=== PATIENT | male | born 1960 | race Caucasian/White ===

== ENCOUNTER 2020-09-15 10:11 | Emergency (ER) | payer OTHER, SELFPAY ==
[2020-09-15 10:21] VITALS: BP 167/88; PULSE 70; RESP 16; TEMP 36.5; O2SAT 98
--- NOTE | 2020-09-15 10:36 | ED.GENADULT ---
HPI - General Adult General Chief complaint: Ear Stated complaint: Rt ear Time Seen by Provider: 09/15/20 10:21 Source: patient and RN notes reviewed Mode of arrival: ambulatory Limitations: no limitations History of Present Illness HPI narrative: Patient presents today with a foreign body to his right ear canal. States the ear piece to his hearing aid came off in his ear last night and he was unable to get it out. Denies pain or drainage. MD complaint: Foreign body to right ear Related Data Home Medications Medication Instructions Recorded Confirmed lisinopril 20 mg DAILY 09/15/20 09/15/20 Allergies Allergy/AdvReac Type Severity Reaction Status Date / Time Penicillins Allergy Unknown unknown Verified 02/08/19 09:43 Review of Systems Review of Systems: Narrative: CONSTITUTIONAL: Denies body aches, fever, chills, or sweats. EYES: Denies visual changes, redness, or discharge. ENT: Denies rhinorrhea, congestion, sore throat, or otalgia.+ Foreign body to right ear CARDIOVASCULAR: Denies chest pain, palpitations, or edema. RESPIRATORY: Denies cough or dyspnea. GASTROINTESTINAL: Denies abdominal pain, nausea, vomiting, or diarrhea. GENITOURINARY: Denies dysuria or hematuria. SKIN: Denies rash, itching, or wounds. MUSCULOSKELETAL: Denies back pain, joint pain, or myalgia. NEUROLOGIC: Denies headache, numbness, tingling, or weakness. PSYCH: Denies depression or anxiety. [facility] Past Medical History Medical History (Updated 09/15/20 @ 10:44 by Louann Tomlinson, [facility]) Hypertension Vision loss Surgical History Surgical History H/O foot surgery Social History Social History Smoking status: Never smoker Alcohol intake: never Substance use: unknown Gender identity (if verbalized by the patient): Male Spiritual care concerns: No Comments At time of signature, I have reviewed and agree with nursing past medical, surgical, social and family history unless otherwise noted. Please see nursing chart for further information. There is no relevant family history pertinent to the presenting complaint Exam Narrative: Exam Narrative: GENERAL: Well-appearing, well-nourished, and in no acute distress. HEAD: Normocephalic, atraumatic. EYES: EOMI. No redness or drainage. Conjunctivae normal. ENT: Mucous membranes pink and moist. Black foreign body deep in right ear canal. TM not visualized. NECK: Normal AROM. Supple. CHEST: No respiratory distress. EXTREMITIES: Normal range of motion. No edema. SKIN: Warm, dry, no rash. Capillary refill normal. Normal skin turgor. NEURO: No focal deficits. Alert and oriented x3. Gait steady. PSYCH: Normal affect. No signs of depression or anxiety. Course Vital Signs Vital signs: Vital Signs Temperature 97.7 F 09/15/20 10:21 Pulse Rate 70 09/15/20 10:21 Respiratory Rate 16 09/15/20 10:21 Blood Pressure 167/88 H 09/15/20 10:21 Pulse Oximetry 98 09/15/20 10:21 Temperature 97.7 F 09/15/20 10:21 Pulse Rate 70 09/15/20 10:21 Respiratory Rate 16 09/15/20 10:21 Blood Pressure 167/88 H 09/15/20 10:21 Pulse Oximetry 98 09/15/20 10:21 Reviewed. Pt has been instructed to follow up with his PCP regarding his elevated blood pressure today. Procedures FB Removal Ear Foreign Body #1: Foreign Body Removal Date: 09/15/20 Foreign Body Removal Time: 10:30 Location: ear canal (R) Foreign Body Suspected: other plastic (hearing aid ear piece) TM intact pre-procedure: unable to visualize Foreign Body Removed: no Foreign Body Removal Technique: instrumentation Patient Tolerated Procedure: well Complications: none Additional Comments: Unable to remove as FB was deep into ear canal and did not want to risk damage to TM by continuing procedure. Will refer to ENT. Medical Decision Ma
--- NOTE | 2020-09-15 10:36 | PC.NURSE ---
attempt made by Davidson Barahona THREAD DRAWER unable to remove
== END 2020-09-15 10:40 | disposition home or self-care (01) ==
PROVIDERS: Emergency Provider Nurse Practitioner; PCP Family Medicine
DX: T16.1XXA Foreign body in right ear, initial encounter (principal); X58.XXXA Exposure to other specified factors, initial encounter; I10 Essential (primary) hypertension
CPT/HCPCS: 69200; 99212; G0463

== ENCOUNTER 2023-12-27 14:09 | Emergency (ER) | payer OTHER, SELFPAY ==
--- NOTE | ~2023-12-27 | XR_ITS ---
XR ankle RT min 3V Ordering provider: TJ Arenas History: . anterior ankle pain x5-6 wks. No injury/trauma. . Comparison: December 28, 2018 FINDINGS: BONES: No acute fracture or dislocation. Calcaneus spur. JOINT SPACES: Normal. SOFT TISSUES: Normal. IMPRESSION: No acute osseous abnormality of the right ankle. Reviewed, dictated and finalized at location A.
[2023-12-27 14:27] VITALS: BP 156/93; PULSE 65; RESP 18; TEMP 37.1; O2SAT 96
[2023-12-27 14:29] VITALS: BP 156/93; PULSE 65; RESP 18; TEMP 37.1; O2SAT 96
--- NOTE | 2023-12-27 15:10 | ED.EXTPRO ---
HPI - Extremity Problem General Chief complaint: Extremity Problem,Nontraumatic Stated complaint: RT Ankle Pain Time Seen by Provider: 12/27/23 14:39 Source: patient and RN notes reviewed Mode of arrival: ambulatory Limitations: no limitations History of Present Illness HPI Narrative: Patient presents today complaining of right anterior ankle pain times 5-6 weeks, worse over the last 2-3 weeks. Denies any injury or trauma. Denies any pain to the foot or calf. Rates his pain at rest 2/10, but this increases to 7/10 with movement. No [id number] treatment prior to arrival. Patient has some numbness and tingling to his foot at baseline, but no worse than normal. Related Data Home Medications Medication Instructions Recorded Confirmed lisinopril 20 mg tablet 20 mg DAILY 09/15/20 12/27/23 Allergies Allergy/AdvReac Type Severity Reaction Status Date / Time Penicillins Allergy Unknown Rash Verified 12/27/23 14:29 Review of Systems Review of Systems: CONSTITUTIONAL: Denies body aches, fever, chills, or sweats. EYES: Denies visual changes, redness, or discharge. ENT: Denies rhinorrhea, congestion, sore throat, or otalgia. CARDIOVASCULAR: Denies chest pain, palpitations, or edema. RESPIRATORY: Denies cough or dyspnea. GASTROINTESTINAL: Denies abdominal pain, nausea, vomiting, or diarrhea. GENITOURINARY: Denies dysuria or hematuria. SKIN: Denies rash, itching, or wounds. MUSCULOSKELETAL: Denies back pain, or myalgia.+ right ankle pain NEUROLOGIC: Denies headache, numbness, tingling, or weakness. PSYCH: Denies depression or anxiety. [facility] Past Medical History Medical History Hypertension Vision loss Surgical History Surgical History H/O foot surgery Social History Social History Smoking status: Never smoker Alcohol intake: never Substance use: unknown Occupation/Education: occupation Gender identity (if verbalized by the patient): Male Spiritual care concerns: No Comments At time of signature, I have reviewed and agree with nursing past medical, surgical, social and family history unless otherwise noted. Please see nursing chart for further information. There is no relevant family history pertinent to the presenting complaint Exam Narrative: GENERAL: Well-appearing, well-nourished, and in no acute distress. HEAD: Normocephalic, atraumatic. EYES: EOMI. No redness or drainage. Conjunctivae normal. ENT: Mucous membranes pink and moist. NECK: Normal AROM. CHEST: No respiratory distress. EXTREMITIES: Right ankle: Tenderness to the anterior ankle and pain in this area with flexion and extension of the ankle. No tenderness to the remainder of the ankle or Achilles tendon. No tenderness to the foot. No edema, erythema, ecchymosis to the lower leg, ankle, foot. Distal sensation intact. Capillary refill normal. Strong pedal pulse. SKIN: Warm, dry, no rash. Capillary refill normal. Normal skin turgor. NEURO: No focal deficits. Alert and oriented x3. Gait steady. PSYCH: Normal affect. No signs of depression or anxiety. Course Course Level of Care: Express Care Visit Vital Signs Vital signs: Vital Signs Temperature 98.8 F 12/27/23 14:27 Pulse Rate 65 12/27/23 14:27 Respiratory Rate 18 12/27/23 14:27 Blood Pressure 156/93 H 12/27/23 14:27 Pulse Oximetry 96 12/27/23 14:27 Oxygen Delivery Room Air 12/27/23 14:27 Temperature 98.8 F 12/27/23 14:29 Pulse Rate 65 12/27/23 14:29 Respiratory Rate 18 12/27/23 14:29 Blood Pressure 156/93 H 12/27/23 14:29 Pulse Oximetry 96 12/27/23 14:29 Oxygen Delivery Room Air 12/27/23 14:29 Reviewed MDM - Extremity (Nontraumatic) MDM Narrative Medical decision making narrative: X-rays negative. Patient is having a
== END 2023-12-27 15:20 | disposition home or self-care (01) ==
PROVIDERS: Emergency Provider Nurse Practitioner; PCP Family Medicine
DX: M77.51 Other enthesopathy of right foot and ankle (principal); I10 Essential (primary) hypertension
CPT/HCPCS: 73610; 99213; G0463

== ENCOUNTER 2024-01-10 17:41 | Emergency (ER) | payer OTHER, SELFPAY ==
--- NOTE | ~2024-01-10 | XR_ITS ---
EXAM: XR foot RT min 3V DATE: 01/10/2024 18:03 HISTORY: dropped wood on dorsum, base of toes yesterday . COMPARISON: None available. FINDINGS: Normal mineralization. Subtle, nondisplaced possibly intra-articular fractures of the prox imal right fourth and fifth proximal phalanges. No lytic or blastic lesion. Mild scattered degenerati ve change. Achilles and plantar enthesopathy. Ossification of the plantar fascia. No erosion or perio steal change. Dorsal forefoot swelling. IMPRESSION: Nondisplaced, possibly intra-articular fractures of the proximal right fourth and fifth p roximal phalanges. Reviewed, dictated and finalized at location K. IMPRESSION: Nondisplaced, possibly intra-articular fractures of the proximal ri ght fourth and fifth proximal phalanges.
[2024-01-10 17:52] VITALS: BP 154/85; PULSE 64; RESP 18; TEMP 37.2; O2SAT 98
[2024-01-10 17:54] VITALS: BP 154/85; PULSE 64; RESP 18; TEMP 37.2; O2SAT 98
--- NOTE | 2024-01-10 18:11 | ED.EXTPRO ---
HPI - Extremity Problem General Chief complaint: Extremity Problem,Nontraumatic Stated complaint: RT Foot Toe Pain Time Seen by Provider: 01/10/24 17:58 Source: patient and RN notes reviewed Mode of arrival: ambulatory Limitations: no limitations History of Present Illness HPI Narrative: Patient presents today complaining of an injury to his right foot. He dropped to 80 heavy piece of wood on to his toes and dorsum of his foot yesterday at [employer]. States the would wait approximately 150-175 lb. Currently rates his pain 06/06 has been taking ibuprofen with some mild relief. He does report decreased sensation to his toes at baseline due to the previous hammertoe surgery in all 5 toes in the past. Reports development of blisters to the base of the toes and 1 has ruptured in between the 1st and 2nd toes today. Related Data Home Medications Medication Instructions Recorded Confirmed lisinopril 20 mg tablet 20 mg DAILY 09/15/20 01/10/24 Allergies Allergy/AdvReac Type Severity Reaction Status Date / Time Penicillins Allergy Unknown Rash Verified 01/10/24 17:53 Review of Systems Review of Systems: CONSTITUTIONAL: Denies body aches, fever, chills, or sweats. EYES: Denies visual changes, redness, or discharge. ENT: Denies rhinorrhea, congestion, sore throat, or otalgia. CARDIOVASCULAR: Denies chest pain, palpitations, or edema. RESPIRATORY: Denies cough or dyspnea. GASTROINTESTINAL: Denies abdominal pain, nausea, vomiting, or diarrhea. GENITOURINARY: Denies dysuria or hematuria. SKIN: + blistering MUSCULOSKELETAL: + right foot injury NEUROLOGIC: Denies headache, numbness, tingling, or weakness. PSYCH: Denies depression or anxiety. [facility] Past Medical History Medical History Hypertension Vision loss Surgical History Surgical History H/O foot surgery Social History Social History Smoking status: Never smoker Alcohol intake: never Substance use: unknown Occupation/Education: occupation Gender identity (if verbalized by the patient): Male Spiritual care concerns: No Comments At time of signature, I have reviewed and agree with nursing past medical, surgical, social and family history unless otherwise noted. Please see nursing chart for further information. There is no relevant family history pertinent to the presenting complaint Exam Narrative: GENERAL: Well-appearing, well-nourished, and in no acute distress. HEAD: Normocephalic, atraumatic. EYES: EOMI. No redness or drainage. Conjunctivae normal. ENT: Mucous membranes pink and moist. NECK: Normal AROM. CHEST: No respiratory distress. EXTREMITIES: Right foot: moderate ecchymosis and mild edema to toes 1-4 and base of toes, dorsal aspect. Intact blisters to the base of the toes. Ruptured blisters between toes 1 and 2. Distal sensation diminished. Capillary refill normal. Pedal pulse normal. Baseline range of motion of toes. SKIN: Warm, dry, no rash. Capillary refill normal. Normal skin turgor. NEURO: No focal deficits. Alert and oriented x3. Gait steady. PSYCH: Normal affect. No signs of depression or anxiety. Course Course Level of Care: Express Care Visit Vital Signs Vital signs: Vital Signs Temperature 99 F 01/10/24 17:52 Pulse Rate 64 01/10/24 17:52 Respiratory Rate 18 01/10/24 17:52 Blood Pressure 154/85 H 01/10/24 17:52 Pulse Oximetry 98 01/10/24 17:52 Oxygen Delivery Room Air 01/10/24 17:52 Temperature 99 F 01/10/24 17:54 Pulse Rate 64 01/10/24 17:54 Respiratory Rate 18 01/10/24 17:54 Blood Pressure 154/85 H 01/10/24 17:54 Pulse Oximetry 98 01/10/24 17:54 Oxygen Delivery Room Air 01/10/24 17:54 Reviewed MDM - Extremity (Nontraumatic) MDM Narrative Medical decision making narrative: Postop shoe applied. X-ray shows proximal phalanx fractures of toes 4 and 5. Recommend podiatry follow-up. Keflex prescribed to prevent infection. Anticipatory guidance given. Differential Diagnosis Differential diagnosis: Likely other (Foot fracture, toe fracture, contusion) Imaging Data Radiologist's impression: ITS Impressions Foot X-Ray 01/10/24 18:09 IMPRESSION: Nondisplaced, possibly intra-articular fractures of the proximal right fourth and fifth proximal phalanges. Critical Care Time Critical Care Time Critical Care Time: No Discharge Plan Discharge Clinical Impression: Contusion of foot, right Qualifiers: Encounter type: initial encounter Qualified Code(s): S90.31XA - Contusion of right foot, initial encounter Fracture of multiple toes Qualifiers: Encounter type: initial encounter Fracture type: closed Laterality: right Qualified Code(s): S92.911A - Unspecified fracture of right toe(s), initial encounter for closed fracture Patient Disposition: Home, Self-Care Condition: Stable Instructions: Antibiotic Form, Toe Fracture (ED), Contusion in Adults (ED) Additional Instructions: Your x-ray shows fracture of your 4th and 5th toes. Please wear the hard-soled shoe to help with healing. Take the Keflex as prescribed to help prevent infection in your blisters. Wash the ruptured area with soap and water daily. Continue ibuprofen if needed for pain. Follow-up with Podiatry to ensure proper healing. Your blood pressure was elevated above 120/80 today at Urgent Care. This puts you above the threshold for follow up. Please schedule a followup visit with your personal physician as soon as possible, for further evaluation and treatment. Even blood pressure exceeding 120/80 may indicate pre-hypertension. Prescriptions: New cephalexin 500 mg capsule 500 mg PO Q6H 7 Days Qty: 28 0RF No Action lisinopril 20 mg tablet 20 mg DAILY Follow-up/Referrals: Anay,Yared Moulton MD [Primary Care Provider] - Javon Padgett DPM [Physician] - Time of Disposition: 18:22
== END 2024-01-10 18:28 | disposition home or self-care (01) ==
PROVIDERS: Emergency Provider Nurse Practitioner; PCP Family Medicine
DX: S92.514A Nondisplaced fracture of proximal phalanx of right lesser toe(s), initial encounter for closed fracture (principal); W20.8XXA Other cause of strike by thrown, projected or falling object, initial encounter; S90.31XA Contusion of right foot, initial encounter; I10 Essential (primary) hypertension
CPT/HCPCS: 73630; 99214; G0463